=== PATIENT | female | born 1985 ===

== ENCOUNTER 2020-11-15 02:07 | Inpatient (IN) ==
[2020-11-15] MEDS ORDERED: OXYTOCIN 30 UNITS/500 ML BAG IV PRN ×3 (02:57→13:25)
[2020-11-15] MEDS: LACTATED RINGER'S 1,000 ML IV PRN ×3 (03:10→10:54)
[2020-11-15] MEDS ORDERED: ePHEDrine sulfate 50 MG/ML AMP ONE (03:14)
[2020-11-15] MEDS ORDERED: SODIUM CHLORIDE 0.9% INJ 10 ML VIAL ONE (03:15)
[2020-11-15] MEDS ORDERED: fentaNYL 2MCG/ML ROPIVACAINE 1.25MG/ML 100 ML BAG EPI ONE (03:15)
[2020-11-15] MEDS ORDERED: fentaNYL citrate 100 MCG/2 ML VIAL ONE (03:15)
[2020-11-15] MEDS ORDERED: BUPIVACAINE 0.25% 30 ML VIAL ONE (03:15)
[2020-11-15 03:31] LABS: Hemoglobin 13.6 g/dL (12.0-16.0); Mean Corpuscular Hemoglobin 28.2 pg (25-34); Mean Corpuscular Hgb Conc 33.2 g/dL (32-36); Mean Corpuscular Volume 84.9 fL (80-100); Mean Platelet Volume 11.6 fL (7.4-10.4); Platelet Count 199 K/uL (130-400); RDW Coefficient of Variation 14.1 % (11.5-14.5); RDW Standard Deviation 43.8 fL (36.4-46.3); Red Blood Count 4.83 M/uL (4.2-5.4); White Blood Count 8.88 K/uL (4.8-10.8)
[2020-11-15] MEDS ORDERED: ONDANSETRON INJ 2 MG/ML 2 ML VIAL IV PRN (03:42)
[2020-11-15] MEDS ORDERED: diphenhydrAMINE 50 MG/ML VIAL IV PRN (03:42)
[2020-11-15] MEDS ORDERED: fentaNYL 2MCG/ML ROPIVACAINE 1.25MG/ML 100 ML BAG EPI PRN (03:42)
[2020-11-15] MEDS ORDERED: NALOXONE HCL 0.4 MG/1 ML VIAL/CARP IV PRN (03:42)
[2020-11-15] MEDS ORDERED: ePHEDrine sulfate 50 MG/ML AMP IV PRN (03:42)
[2020-11-15] MEDS ORDERED: NALOXONE HCL 1 MG in SODIUM CHLORIDE 0.9% 1000ML 1,000 ML IV PRN (03:42)
--- NOTE | 2020-11-15 03:44 | Anesthesiology Consultation ---
Date of Service November 15, 2020 Assessment & Plan (1) Encounter for pre-operative examination: Chart Review Chart Review: Patient NOT seen in Pre Admission Testing and Acceptable Risk for Labor Epidural Consults Requested none History Height/Weight Height: 5 ft 4 in Weight: 86.636 kg Allergies Allergy/AdvReac Type Severity Reaction Status Date / Time No Known Allergies Allergy Verified 11/15/20 03:12 Medications Home Medications Medication Instructions Recorded Confirmed Last Taken cetirizine [Zyrtec] 10 mg PO DAILY PRN 11/15/20 11/15/20 11/14/20 prenat.vits,sydney,lew-pofm-pfisi 1 tab PO DAILY 11/15/20 11/15/20 11/14/20 [ Vitamin] Active Medications Generic Name Dose Route Start Last Admin Trade Name Freq PRN Reason Stop Dose Admin Lactated Ringer's 1,000 mls @ 125 mls/hr 11/15/20 02:57 11/15/20 03:10 Lr IV 11/17/20 02:56 999 mls/hr .Q8H PRN Administration L&D Protocol Protocol Past Medical History healthy Exercise / Class Metabolic Activity II 4-5 Yardwork/Stairs/Walk up hill Past Anesthesia History No Hx of Anesthesia Complications and No Family Hx of Anesthesia Complications History of PONV No Hx of PONV and No Hx of Motion Sickness Social History Smoking Status: Never smoker Do You Dip or Chew Tobacco: No Hx Alcohol Use: No Hx Substance Use: No Physical Exam Vital Signs Last Vital Signs Temp 36.4 C L 11/15/20 02:23 Pulse 80 11/15/20 04:03 Resp 18 11/15/20 02:23 BP 124/76 11/15/20 04:02 Pulse Ox 100 11/15/20 03:57 Testing Laboratory Results 11/15/20 03:20
--- NOTE | 2020-11-15 04:04 | History & Physical Report ---
Date of Service November 15, 2020 Assessment & Plan (1) Uterine contractions at greater than 20 weeks of gestation: 35-year-old -0-1-1 at 41 weeks and 1 day of gestation presenting in active labor. Vital signs stable afebrile, heart rate reassuring, GBS negative, Coronavirus is negative, She is getting admitted and is going to have epidural for pain per her request, Continue to monitor (2) Advanced maternal age (AMA) in : Admission and Anticipated Discharge Date Admission Date: November 15, 2020 History of Present Illness Primary Care Provider: NO PCP Patient is a 20-noso-pdc-year-old [id number] at 41 weeks and 1 day gestation who is being admitted for labor. Her contractions started yesterday morning and got more regular and painful after 9 PM last night. She felt a small leakage on the way here and denies vaginal bleeding. She reports good movements. Her has been uncomplicated except 1)AMA, NIPT testing high risk with low fraction, had MFM USX2, no other testing was done EFW: 3611 gr on 10/28 2)Uterine fibroid 3) Short interval Allergies Allergy/AdvReac Type Severity Reaction Status Date / Time No Known Allergies Allergy Verified 11/15/20 03:12 Home Medications Medication Instructions Recorded Confirmed Type cetirizine [Zyrtec] 10 mg PO DAILY PRN 11/15/20 11/15/20 History prenat.vits,sydney,mzk-ajou-kpfoq 1 tab PO DAILY 11/15/20 11/15/20 History [ Vitamin] Patient History Social History Smoking Status: Never smoker Do You Dip or Chew Tobacco: No; Hx Alcohol Use: No Hx Substance Use: No Preferred Language: Korean Communication Ability: Effective It Support Consultant Required: No Beliefs That Will Affect Care: None marital status: Current Living Situation: Spouse and Family Current Living Situation Comment: son Feels Safe at Home: Yes Safety Concerns: Feels Safe At This Time OB History FT in 03/2019 [employer] History NO h/o STD's, no h/o HSV/ Chlam/ GC Review of Systems All systems reviewed & are unremarkable except as noted in HPI & below Physical Exam Constitutional: WD/WN, vitals as above well developed and + acute distress (with contractions) Gastrointestinal (Abdomen): normal bowel sounds, soft, nontender, no hepatosplenomegaly (gravid, radha 8-9 lb) Genitourinary: normal external appearance OB Exam Abdomen: + vertex Manual OB Exam: + cervical dilation 4 cm, + cervical effacement 80% and + station -2 OB Exam Monitor Tracing: + external uterine monitor used and + category I No leaking, nitrazine negative Results & Data ([facility]) Vital Signs (Past 12 Hours) Vital Signs Temp Pulse Resp BP Pulse Ox 11/15/20 03:57 83 100 11/15/20 03:53 95 H 100 11/15/20 03:48 89 100 11/15/20 02:28 80 138/88 11/15/20 02:23 36.4 C L 18 Laboratory Results Lab Results 11/15/20 11/15/20 11/15/20 Range/Units 02:55 02:55 03:20 WBC 8.88 (4.8-10.8) K/uL RBC 4.83 (4.2-5.4) M/uL Hgb 13.6 (12.0-16.0) g/dL Hct 41.0 (37-47) % MCV 84.9 (80-100) fL MCH 28.2 (25-34) pg MCHC 33.2 (32-36) g/dL RDW Std Deviation 43.8 (36.4-46.3) fL RDW Coeff of Amaury 14.1 (11.5-14.5) % Plt Count 199 (130-400) K/uL MPV 11.6 H (7.4-10.4) fL COVID-19 Eval Order Covid19 [facility] SARS-CoV-2, RNA, NAAT NEGATIVE (NEGATIVE)
--- NOTE | 2020-11-15 07:33 | Labor Progress Brief Note ---
Date of Service November 15, 2020 Assessment & Plan Admission and Anticipated Discharge Date Admission Date: November 15, 2020 Physical Exam Genitourinary: Manual OB Exam: + cervical dilation 6 cm and 7 cm, + cervical effacement 100% and + station -2 OB Exam Monitor Tracing: + external FHT monitor used, + external uterine monitor used, + category I and + normal FHT variability Will start Oxytocin to augment contractions Results [facility] ([facility]) Vital Signs (Past 12 Hours) Vital Signs Temp Pulse Resp BP Pulse Ox 11/15/20 07:27 83 109/64 11/15/20 07:19 86 99 11/15/20 07:11 36.6 C 91 H 20 118/61 11/15/20 07:05 91 H 96 11/15/20 06:56 83 110/64 11/15/20 06:50 83 98 11/15/20 06:48 99 H 94 11/15/20 06:41 82 107/67 11/15/20 06:37 94 H 94 11/15/20 06:35 74 96 11/15/20 06:28 74 94 11/15/20 06:26 84 115/68 11/15/20 06:20 83 93 11/15/20 06:11 75 108/64 11/15/20 06:05 81 98 11/15/20 06:02 82 94 11/15/20 05:57 71 107/60 11/15/20 05:53 79 94 11/15/20 05:50 85 96 11/15/20 05:45 76 94 11/15/20 05:42 74 113/63 11/15/20 05:38 79 94 11/15/20 05:35 81 94 11/15/20 05:29 79 94 11/15/20 05:26 72 109/65 11/15/20 05:24 80 94 11/15/20 05:20 66 98 11/15/20 05:11 69 116/68 11/15/20 05:09 73 92 11/15/20 05:05 74 99 11/15/20 04:57 69 120/67 11/15/20 04:50 69 98 11/15/20 04:42 73 122/68 11/15/20 04:35 76 98 11/15/20 04:30 16 11/15/20 04:26 75 130/69 11/15/20 04:24 80 133/71 11/15/20 04:22 78 133/71 11/15/20 04:20 77 128/68 98 11/15/20 04:18 84 123/68 11/15/20 04:16 73 131/73 11/15/20 04:14 87 133/77 11/15/20 04:12 84 132/74 11/15/20 04:10 83 130/72 11/15/20 04:08 74 128/68 11/15/20 04:06 77 122/66 11/15/20 04:05 36.6 C 80 18 126/72 11/15/20 04:03 80 93 11/15/20 04:02 77 124/76 11/15/20 03:57 83 100 11/15/20 03:53 95 H 100 11/15/20 03:48 89 100 11/15/20 02:28 80 138/88 11/15/20 02:23 36.4 C L 18
[2020-11-15] MEDS ORDERED: NURSING L&D Epidural Breakthrough Pain Update ONE (09:58)
[2020-11-15] MEDS ORDERED: LIDOCAINE 2%/EPINEPHRINE 1:200,000 20 ML SDV ONE (10:35)
[2020-11-15] MEDS ORDERED: ROPIVACAINE 0.5% 5 MG/ML 30 ML VIAL ONE (10:35)
--- NOTE | 2020-11-15 11:54 | Labor Progress Brief Note ---
Date of Service November 15, 2020 Assessment & Plan Admission and Anticipated Discharge Date Admission Date: November 15, 2020 Physical Exam Genitourinary: Manual OB Exam: + cervical dilation 10 cm, + cervical effacement 100% and + station -1 OB Exam Monitor Tracing: + external FHT monitor used, + external uterine monitor used, + category I and + normal FHT variability will start to push Results & Data ([facility]) Vital Signs (Past 12 Hours) Vital Signs Temp Pulse Resp BP Pulse Ox 11/15/20 11:49 89 100 11/15/20 11:41 103 H 106/71 11/15/20 11:34 102 H 100 11/15/20 11:31 36.8 C 20 11/15/20 11:27 93 H 102/65 11/15/20 11:19 92 H 100 11/15/20 11:12 89 105/72 11/15/20 11:04 94 H 100 11/15/20 11:01 20 11/15/20 10:58 87 106/70 11/15/20 10:54 94 H 118/72 11/15/20 10:53 93 H 111/71 11/15/20 10:50 88 118/78 11/15/20 10:49 82 100 11/15/20 10:48 99 H 124/74 11/15/20 10:46 88 128/73 11/15/20 10:45 68 123/79 11/15/20 10:40 83 124/76 11/15/20 10:39 83 135/81 11/15/20 10:34 84 100 11/15/20 10:31 18 11/15/20 10:24 93 H 91 11/15/20 10:20 93 H 100 11/15/20 10:17 95 H 90 11/15/20 10:04 98 H 100 11/15/20 10:01 20 11/15/20 09:58 100 H 135/75 11/15/20 09:56 90 94 11/15/20 09:50 96 H 97 11/15/20 09:46 92 H 91 11/15/20 09:41 97 H 135/64 11/15/20 09:35 88 98 11/15/20 09:31 20 11/15/20 09:28 96 H 146/67 H 11/15/20 09:27 101 H 93 11/15/20 09:20 89 100 11/15/20 09:12 86 107/61 11/15/20 09:05 83 98 11/15/20 09:01 36.6 C 20 11/15/20 08:56 89 106/61 11/15/20 08:50 81 100 11/15/20 08:41 89 107/60 11/15/20 08:35 86 98 11/15/20 08:31 20 11/15/20 08:27 80 106/61 11/15/20 08:19 84 100 11/15/20 08:11 91 H 123/72 11/15/20 08:05 84 98 11/15/20 08:01 20 11/15/20 07:56 90 112/74 11/15/20 07:50 76 98 11/15/20 07:49 76 106/64 11/15/20 07:35 77 99 11/15/20 07:31 20 11/15/20 07:27 83 109/64 11/15/20 07:19 86 99 11/15/20 07:11 36.6 C 91 H 20 118/61 11/15/20 07:05 91 H 96 11/15/20 06:56 83 110/64 11/15/20 06:50 83 98 11/15/20 06:48 99 H 94 11/15/20 06:41 82 107/67 11/15/20 06:37 94 H 94 11/15/20 06:35 74 96 11/15/20 06:28 74 94 11/15/20 06:26 84 115/68 11/15/20 06:20 83 93 11/15/20 06:11 75 108/64 11/15/20 06:05 81 98 11/15/20 06:02 82 94 11/15/20 05:57 71 107/60 11/15/20 05:53 79 94 11/15/20 05:50 85 96 11/15/20 05:45 76 94 11/15/20 05:42 74 113/63 11/15/20 05:38 79 94 11/15/20 05:35 81 94 11/15/20 05:29 79 94 11/15/20 05:26 72 109/65 11/15/20 05:24 80 94 11/15/20 05:20 66 98 05//21 05:11 69 116/68 11/15/20 05:09 73 92 11/15/20 05:05 74 99 11/15/20 04:57 69 120/67 11/15/20 04:50 69 98 11/15/20 04:42 73 122/68 11/15/20 04:35 76 98 11/15/20 04:30 16 11/15/20 04:26 75 130/69 11/15/20 04:24 80 133/71 11/15/20 04:22 78 133/71 11/15/20 04:20 77 128/68 98 11/15/20 04:18 84 123/68 11/15/20 04:16 73 131/73 11/15/20 04:14 87 133/77 11/15/20 04:12 84 132/74 11/15/20 04:10 83 130/72 11/15/20 04:08 74 128/68 11/15/20 04:06 77 122/66 11/15/20 04:05 36.6 C 80 18 126/72 11/15/20 04:03 80 93 11/15/20 04:02 77 124/76 11/15/20 03:57 83 100 11/15/20 03:53 95 H 100 11/15/20 03:48 89 100 11/15/20 02:28 80 138/88 11/15/20 02:23 36.4 C L 18
--- NOTE | 2020-11-15 12:48 | Delivery Summary ---
Vaginal Delivery Summary Date of Service November 15, 2020 Vaginal Delivery Summary Delivery Note Live female over intact perineum JACKIE with delayed cord clamping and Apgars 8/8 weight pending. Cord blood obtained followed by spontaneous delivery of intact placenta. No tears. EBL 150 ml. Final sponge and instrument counts are correct. Mom and baby stable.
[2020-11-15] MEDS ORDERED: HYDROCORTISONE ACETATE 25 MG SUPP PR PRN (13:25)
[2020-11-15] MEDS ORDERED: ACETAMINOPHEN 325 MG TAB PO PRN (13:25)
[2020-11-15] MEDS ORDERED: CETIRIZINE HCL 10 MG TABLET PO PRN (13:25)
[2020-11-15] MEDS ORDERED: SUPERCREAM 0.870% 15 GM JAR EXT PRN (13:25)
[2020-11-15] MEDS ORDERED: BENZOCAINE 20% AER SPR 82.5 GM CAN EXT PRN (13:25)
[2020-11-15] MEDS ORDERED: bisacodyL 10 MG SUPP PR PRN (13:25)
[2020-11-15] MEDS ORDERED: DIPHTHERIA/TETANUS/PERTUSSIS 0.5 ML SYR/VIAL IM ONE (13:25)
--- NOTE | 2020-11-15 14:03 | Anesthesia Procedure Note ---
Date of Service November 15, 2020 Anesthesia Post Epidural Note Vital Signs Vital Signs: Temp Pulse Resp BP Pulse Ox 36.6 C 76 20 119/68 89 L 11/15/20 12:40 11/15/20 13:40 11/15/20 13:10 11/15/20 13:40 11/15/20 12:35 Pain Intensity Bilateral Abdomen: Pain Intensity: 10 Notes Mental Status: alert / awake / arousable and participated in evaluation Patient Amnestic to Procedure: No Nausea / Vomiting: adequately controlled Pain: adequately controlled Airway Patency, RR, SpO2: stable & adequate BP & HR: stable & adequate Hydration State: stable & adequate Neuraxial Anesthesia: was administered and sensory block is resolving Anesthetic Complications: no major complications apparent and Pt Satisfied with anesthetic care Epidural: Removed without complications and With tip intact
[2020-11-15] MEDS: IBUPROFEN 600 MG TAB PO PRN ×2 (16:08→21:13)
[2020-11-15] MEDS: DOCUSATE SODIUM 100 MG CAP PO SCH (19:30)
[2020-11-16] MEDS: IBUPROFEN 600 MG TAB PO PRN ×2 (03:53→07:56)
[2020-11-16 06:19] LABS: Hematocrit (blood only) 35.6 % (37-47); Hemoglobin 11.9 g/dL (12.0-16.0); Mean Corpuscular Hemoglobin 28.6 pg (25-34); Mean Corpuscular Hgb Conc 33.4 g/dL (32-36); Mean Corpuscular Volume 85.6 fL (80-100); Mean Platelet Volume 12.1 fL (7.4-10.4); Platelet Count 174 K/uL (130-400); RDW Coefficient of Variation 14.3 % (11.5-14.5); RDW Standard Deviation 44.5 fL (36.4-46.3); Red Blood Count 4.16 M/uL (4.2-5.4); White Blood Count 14.26 K/uL (4.8-10.8)
[2020-11-16] MEDS: DOCUSATE SODIUM 100 MG CAP PO SCH (07:54)
--- NOTE | 2020-11-16 07:56 | Obstetrical Progress Note ---
Date of Service November 16, 2020 Assessment & Plan Admission and Anticipated Discharge Date Admission Date: November 15, 2020 Subjective Patient is seen and examined. She feels well, no complaints. Ambulating without dizziness Voiding without difficulty Tolerating regular diet with out N&V Bleeding is minimal No fever/ chills/ CP/ SOB/ N&V/ Leg pain Breast feeding without problems Vital Signs Temp Pulse Resp BP Pulse Ox 11/16/20 07:43 36.6 C 81 18 118/75 100 11/16/20 03:45 36.8 C 63 16 110/71 99 11/15/20 23:50 36.7 C 68 16 111/70 100 Lab Results 11/15/20 11/15/20 11/15/20 Range/Units 02:55 02:55 03:20 WBC 8.88 (4.8-10.8) K/uL RBC 4.83 (4.2-5.4) M/uL Hgb 13.6 (12.0-16.0) g/dL Hct 41.0 (37-47) % MCV 84.9 (80-100) fL MCH 28.2 (25-34) pg MCHC 33.2 (32-36) g/dL RDW Std Deviation 43.8 (36.4-46.3) fL RDW Coeff of Amaury 14.1 (11.5-14.5) % Plt Count 199 (130-400) K/uL MPV 11.6 H (7.4-10.4) fL COVID-19 Eval Order Covid19 [facility] SARS-CoV-2, RNA, NAAT NEGATIVE (NEGATIVE) 11/16/20 Range/Units 06:02 WBC 14.26 H (4.8-10.8) K/uL RBC 4.16 L (4.2-5.4) M/uL Hgb 11.9 L (12.0-16.0) g/dL Hct 35.6 L (37-47) % MCV 85.6 (80-100) fL MCH 28.6 (25-34) pg MCHC 33.4 (32-36) g/dL RDW Std Deviation 44.5 (36.4-46.3) fL RDW Coeff of Amaury 14.3 (11.5-14.5) % Plt Count 174 (130-400) K/uL MPV 12.1 H (7.4-10.4) fL COVID-19 Eval Order SARS-CoV-2, RNA, NAAT (NEGATIVE) PE: General: Alert, orientedx3, NAD Abd: soft, NT, fundus firm, below Umbilicus Perineum intact, Lochia rubra minimal Ext; NT, no edema AP: 35 yo s/p , ppd# 1 VSS Afebrile doing well Continue routine care Discussed when to call All questions were answered D/C home , f/u in office Results & Data ([facility]) Vital Signs (Past 12 Hours) Vital Signs Temp Pulse Resp BP Pulse Ox 11/16/20 07:43 36.6 C 81 18 118/75 100 11/16/20 03:45 36.8 C 63 16 110/71 99 11/15/20 23:50 36.7 C 68 16 111/70 100
[2020-11-16] MEDS ORDERED: PRENATAL VITAMIN 1 TAB PO SCH (08:00)
[2020-11-16] MEDS ORDERED: FERROUS SULFATE 325 MG TAB PO SCH (08:00)
[2020-11-16] MEDS ORDERED: NON-FORMULARY MEDICATION (Prenat.Vits,Cal,Min-Iron-Folic Tablet) PO SCH (09:00)
[2020-11-16] MEDS ORDERED: bisacodyL 5 MG TABEC PO SCH (20:00)
== END 2020-11-16 13:35 | disposition home or self-care (01) | DRG 807 ==
LOC: OPB 02:07 → 4S1 02:11 → 4S2 16:11